=== PATIENT | male | born 1950 | race Caucasian/White ===

== ENCOUNTER 2021-08-03 11:20 | Emergency (ER) | payer MEDICARE, OTHER ==
[~2021-08-03] VITALS: Ht 188 cm; Wt 93.2 kg
[2021-08-03 11:27] VITALS: TEMP 98.6
[2021-08-03 11:38] LABS: BASO % 0.3 % (0.0-2.0); EOS # 0.1 K/mm3 (0.0-0.7); EOS % 0.6 % (0.0-4.0); GRAN % 76.5 % (42.2-75.2); HEMATOCRIT 42.8 % (42.0-52.0); HEMOGLOBIN 14.6 g/dl (13.5-18.0); MEAN CELL VOLUME 92 fl (80.0-100.0); MEAN CORPUSCULAR HEMOGLOBIN 31 pg (27-31); MEAN CORPUSCULAR HGB CONC 34 g/dl (33.0-37.0); MEAN PLATELET VOLUME 9.3 fl (7.4-10.4); MONO # 1.3 K/mm3 (0.1-0.6); MONO % 12.3 % (1.7-9.3); PLATELET COUNT 285 K/mm3 (130-400); RED BLOOD COUNT 4.67 M/mm3 (4.20-5.60); REDCELL DISTRIBUTION WIDTH-CV 12.8 % (11.5-14.5)
[2021-08-03 11:51] LABS: ALANINE AMINOTRANSFERASE 25 U/L (0-55); ALBUMIN 4.2 gm/dL (3.4-4.8); ALKALINE PHOSPHATASE 86 U/L (40-150); AST,SGOT 22 U/L (5-34); BILIRUBIN,TOTAL 1.1 mg/dL (0.2-1.2); BLOOD UREA NITROGEN 16 mg/dL (8-26); CALCIUM 9.6 mg/dL (8.4-10.2); CARBON DIOXIDE 27 mmol/L (23-31); CREATININE, serum 0.88 mg/dL (0.72-1.25); GLUCOSE 112 mg/dL (70-99); TOTAL PROTEIN 7.8 gm/dL (6.2-8.1)
[2021-08-03 11:56] LABS: ANION GAP 10 mmol/L (7-16); CHLORIDE 102 mmol/L (98-107); POTASSIUM 3.6 mmol/L (3.5-4.5); SODIUM 139 mmol/L (136-145)
[2021-08-03 11:57] LABS: TROPONIN-I < 0.010 ng/mL (0.00-0.033)
[2021-08-03] MEDS ORDERED: FLEXERIL 1010 MG/TAB PO (13:56)
[2021-08-03 14:46] VITALS: BP 123/80; PULSE 63
== END 2021-08-03 14:48 | disposition home or self-care (01) ==
LOC: COL.ER 11:20
PROVIDERS: Family Medicine
DX: R07.89 Other chest pain (principal); M25.512 Pain in left shoulder; Z87.891 Personal history of nicotine dependence; X50.0XXA Overexertion from strenuous movement or load, initial encounter
CPT/HCPCS: J1885; Q9967